=== PATIENT | female | born 1945 | race Caucasian/White ===

== ENCOUNTER 2023-09-30 06:46 | Observation (INO) ==
--- NOTE | 2023-09-26 16:04 | Anesthesiology Consultation ---
Date of Service September 26, 2023 Assessment & Plan (1) Encounter for pre-operative examination: Chart Review Chart Review: Acceptable Risk for Surgery and Patient NOT seen in Pre Admission Testing -Infectious Disease screening: Per PAT nursing assessment on 09/26/23. No known infectious disease contacts in past 10 days or current infectious disease symptoms. No recent travel outside the country. History Surgery Operation Date: 09/30/23 10:30 Proposed Procedures p Laparoscopic Cholecystectomy with Cholangiogram - Lexx Lin MD Height/Weight Height: 5 ft 6 in Weight: 71.214 kg Allergies Allergy/AdvReac Type Severity Reaction Status Date / Time No Known Allergies Allergy Verified 09/26/23 15:42 Medications Home Medications Medication Instructions Recorded Confirmed Last Taken mirabegron 50 mg tablet,extended 50 mg PO HS 09/15/23 09/26/23 09/19/23 release 24 hr (Myrbetriq) rivastigmine 4.6 mg/24 hour 4.6 mg transdermal QAM 09/15/23 09/26/23 09/20/23 transdermal patch (Exelon Patch) bisacodyl 5 mg tablet 10 mg PO HS PRN Constipation 09/20/23 09/26/23 Unknown cyanocobalamin (vitamin B-12) 500 500 mcg PO HS 09/20/23 09/26/23 09/19/23 mcg tablet (Vitamin B-12) omeprazole 20 mg capsule,delayed 20 mg PO QAM 09/20/23 09/26/23 09/20/23 release quetiapine 25 mg tablet (Seroquel) 25 mg PO HS 09/20/23 09/26/23 09/19/23 lorazepam 1 mg tablet 1 mg PO ONCE DOS 09/26/23 09/26/23 Unknown Past Medical History Medical History Crohn's disease no current issues Dementia late stages of dementia - lives with family (patient's brother, Akin) Heartburn vs abdominal pain r/t the gallbladder Urinary frequency overnight Past Family History Family History Other No family history of adverse response to anesthesia Past Surgical History Surgical History History of colonoscopy History of hysterectomy DARÍO with BSO S/P hip replacement bilateral? Social History Smoking Status: Former smoker Do You Dip or Chew Tobacco: No Hx Alcohol Use: No Hx Substance Use: No Lab Results Anesthesia Preop Results Results Anesthesia Widget: WBC 6.23 K/ul (4.8-10.8) 09/20/23 Hgb 12.4 g/dl (12.0-16.0) 09/20/23 Hct 37.9 % (37.0-47.0) 09/20/23 Plt 289 K/uL (130-400) 09/20/23 Na 134 mmol/L (136-145) L 09/20/23 K 3.4 mmol/L (3.5-5.1) L 09/20/23 Cl 98 mmol/L (98-107) 09/20/23 CO2 28 mmol/L (21-32) 09/20/23 BUN 7 mg/dl (6-23) 09/20/23 Creat 0.67 mg/dl (0.6-1.2) 09/20/23 Glucose Level 111 mg/dl (70-99(Fasting)) H 09/20/23 PT 10.9 Seconds (9.0-12.0) 09/15/23 PTT 26 Seconds (21-31) 09/15/23 INR 1.0 (0.9-1.1) 09/15/23 Urine Color Yellow 09/20/23 Urine Appearance Clear (Clear) 09/20/23 Urine pH 6.5 (4.5-7.5) 09/20/23 Urine Specific Alpha 1.039 (1.000-1.030) H 09/20/23 Urine Protein Negative (Negative) 09/20/23 Urine Glucose (UA) Negative (Negative) 09/20/23 Urine Ketones Negative (Negative) 09/20/23 Urine Blood Negative (Negative) 09/20/23 Urine Nitrite Negative (Negative) 09/20/23 Urine Bilirubin Negative (Negative) 09/20/23 Urine Urobilinogen Negative (Negative) 09/20/23 Urine Leukocyte Esterase Negative (Negative) 09/20/23 Testing Laboratory Results 09/15/23= URINE CULTURE: More than three types of organisms present, all high counts, mixed probable skin luis a. Electrocardiogram Date: 09/15/23 Findings: + NSR @ (87bpm) Left axis deviation Poor R wave progression, consider anterior MT vs lead placement vs LVH (Discussed with Dr. Mace- patient without significant cardiac risk factors, no significant physical limitations per nursing assessment- patient can proceed as scheduled) Chest X-Ray Date: 09/15/23 Findings: + NAD Other Testing Abdomen/Pelvis CT 09/20/23= Increased distal small bowel wall thickening with surrounding infiltration through the terminal ileum, suspicious for inflammatory bowel disease including Crohn's disease. Increased gallbladder distention. Small amount of pelvic free fluid. Redemonstrated probable left adrenal adenoma. Otherwise no change. (Discussed with Dr. Mace- abdomen/pelvis CT scan from 09/15/23 showed "lipid rich left adrenal adenoma;" patient's BP WNL at surgeon's appt 09/26/23 (137/63)- patient can proceed as scheduled)
--- OUTSIDE RECORDS SUMMARY | 2023-09-30 06:53 | External Medical Summary | Summary of Care ---
Author Name Unknown Organization [facility] Address [address] [address] Phone [phone] Care Team Providers Care Ux Consultant Name Role Phone Gaetano Lomax DO Primary Care Provider [phone] Reason for Visit * Reason Comments Follow Up Encounter Details Date Type Department Care Team (Late st Contact Info) Description 09/20/2023 4:00 PM EDT Office Visit Family Practice [address] [facility] [address] [place] [address] Gaetano Lomax [address] [place] [address] Abdominal pain, diffuse*; Pain aggravated by eating or drinking; Loss of weight; Alzheimer's type dementia with late onset with behavioral disturbance (HCC); Constipation, unspecified constipation type; Risk and functional assessment Allergies No known active allergiesdocumented as of this encounter (statuses as of 09/22/2023) Medications Medication Sig Dispensed Refills Start Date End Date Status QUEtiapine Fumarate 25 MG Oral Tablet (SEROquel)Indicati ons: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 30 Tablet 3 06/28/2023 Active Rivastigmine 4.6 MG/24HR Transdermal Patch 24 Hour (Exelon) Place 1 Patch over 24 hours topically on the skin in the morning. 30 Patch 12 07/03/2023 Active B-12 500 MCG Sublingual Tablet Sublingual Place 500 mcg under the tongue in the morning. 0 07/03/2023 Active Myrbetriq 50 MG Oral Tablet Extended Release 24 Hour (Mirabegron ER) Take 1 Tablet by mouth in the morning. 30 Tablet 11 08/14/2023 Active Cephalexin 500 MG Oral Capsule Take 1 Capsule by mouth in the morning and 1 Capsule at noon and 1 Capsule before bedtime. 0 Active Omeprazole 20 MG Oral Capsule Delayed Release (PriLOSEC)Indicati ons:RUQ abdominal pain Take 1 Capsule by mouth in the morning. 1 hour before the first meal of the day. 30 Capsule 5 09/18/2023 Active Bisacodyl 5 MG Oral Tablet Delayed Release (Dulcolax)Indicati ons:Slow transit constipation Take 2 Tablets by mouth daily as needed for Constipation for up to 5 days. Do not use for more than one week. Do not cut, crush or chew 0 09/18/2023 09/23/2023 Active documented as of this encounter (statuses as of 09/22/2023) Active Problems Problem Noted Date Diagnosed Date Alzheimer's type dementia wi th late onset with behavioral disturbance 06/28/2023 documented as of this encounter (statuses as of 09/22/2023) Immunizations Name Administration Dates Next Due Covid-19 Ad26, Single Dose (Kalen/J&J) 021 Pneumococcal Conjugate Vacc, 13 Valent (Prevnar) 05/28/2018 Pneumococcal Polysaccharide PPV23 (Pneumovax) TDAP (age 11 and older)(Adacel) 07/20/2013 documented as of this encounter Social History Tobacco Use Types Packs/Day Years Used Date Smoking Tobacco: Former Cigarettes Passive Smoke Exposure: Past Smokeless Tobacco: Never Tobacco Cessation:Counseling Given: Yes Alcohol Use Standard Drinks/Week Comments Not Currently 0 (1 standard drink = 0.6 oz pur e alcohol) heavy in thepast PHQ-2 Answer Date Recorded PHQ Adult Total Score 6 06/28/2023 Hunger Vital Sign Answer Date Recorded Within the past 12 months, y ou worried that your food would run out before you got the money to buy more. Never true 06/28/19 24 Within the past 12 months, t he food you bought just didn't last and you didn't have money to get more. Never true 06/28/2023 Education Answer Date Recorded What is the highest level of school you have completed or the highest degree you have received? 12th grade 07/03/2023 Sex and Gender Information Value Date Recorded Sex Assigned at Female 06/28/2023 9:22 AM EST Gender Identity Female 06/28/2023 9:22 AM EST Sexual Orientation Straight 06/28/2023 9: 22 AM EST Job Start Date Occupation Industry Not on file Not on file Not on file documented as of this encounter Last Filed Vital Signs Vital Sign Reading Time Taken Comments Blood Pressure 126/80 09/20/2023 3:43 PM EDT Pulse 88 09/20/2023 3:43 PM EDT Temperature 36.3 C (97.4 F) 09/20/2023 3:43 PM ED T Respiratory Rate 14 09/20/2023 3:43 PM EDT Oxygen Saturation 97% 09/20/2023 3:43 PM EDT Inhaled Oxygen Concentration - - Weight 71.4 kg (157 lb 6.4 oz) 09/20/2023 3:43 P M EDT Height 167.6 cm (5' 6") 09/20/2023 3:43 PM EDT Body Mass Index 25.41 09/20/2023 3:43 PM EDT documented in this encounter Patient Instructions * Patient Instructions* Gianna Mcgraw LPN - 09/20/2023 3:41 PM EDT Patient Instructions - Fall Prevention (This education is for all patients over 65 regardless of symptoms) Remember to take your current medications as prescribed. In order to prevent falls, you are encouraged to: Exercise Utilize assistive/adaptive devices Avoid multifocal lenses when walking Avoid hazards in home Maintain a regular toileting schedule Any questions please contact our office. Preventing Falls in the Home (This education is for all patients over 65 regardless of symptoms) As you get older, falls are more likely. Thats because your reaction time slows. Your muscles and joints may also get stiffer, making them less flexible. Illness, medications, and vision changes can also affect your balance. A fall could leave you unable to live on your own. To make your home safer, follow these tips: Floors Put nonskid pads under area rugs Remove throw rugs Replace worn floor coverings Tack carpets firmly to each step on carpeted stairs. Put nonskid strips on the edges of uncarpeted stairs Keep floors and stairs free of clutter and cords Arrange furniture so there are clear pathways Clean up any spills right away Bathrooms Install grab bars in the tub or shower Apply nonskid strips or put a nonskid rubber mat in the tub or shower Sit on a bath chair to bathe Use bathmats with nonskid backing Lighting Keep a flashlight in each room Put a nightlight along the pathway between the bedroom and the bathroom [facility] Patient Education Copyright 2008 - 2010 [employer] except where otherwise noted Preventing Falls: Exercises to Improve Balance, Flexibility, Strength, and Staying Power (This education is for all patients over 65 regardless of symptoms) Certain types of exercises may help make you less likely to fall. Try the ones below. Or do other exercises that your healthcare provider suggests. Depending on your health, you may need to start slowly. Dont let that stop you. Even small amounts of exercise can help you. Be sure to talk to yourhealthcare provider before starting any exercise program. Improve Balance Many types of exercise can help improve balance. Jose Cruz chi and yoga are good examples. Heres another one to try. You can do it anytime and almost anywhere. Stand next to a counter or solid support. Push yourself up onto your tiptoes. Hold for 5 seconds. If you start to lose your balance, hold on to the counter. Rest and repeat 5 times. Work up to holding for 20 to 30 seconds, if you can. Increase Flexibility Being more flexible makes it easier for you to move around safely. Try exercises like the seated hamstring stretch. Sit in a chair and put one foot on a stool. Straighten your leg and reach with both hands down either side of your leg. Reach as far down your leg as you can. Hold for about 20 seconds. Go back to the starting position. Then repeat 5 times. Switch legs. Build Strength Resistance exercises help build strength. You can do them without equipment. Or you can use weights, elastic bands, or special machines. One such exercise is called the biceps curl. You can hold a 1 pound weight or even a can of soup. Do this exercise at least 3 times a week. Strive for everyday. Sit up straight in a chair. Keep your elbow close to your body and your wrist straight. Bend your arm, moving your hand up to your shoulder. Then slowly lower your arm. Repeat 5 times. Switch to the other arm. Build Your Staying Power Aerobic exercises make your heart and lungs stronger so you can keep moving longer. Walking and swimming are two of the best types of exercises you can do. Using a stationary bike is great, too. Find an aerobic exercise that you enjoy. Start slowly and build up. Even 5 minutes is helpful. Aimfor a goal of 30 minutes, at least 3 times a week. You dont have to do 30 minutes in one session. Break it up and walk a little throughout the day. More Helpful Tips Start easy. Slowly work up to doing more. Talk with your healthcare provider about the best exercises for you. Call senior centers or health clubs about exercise programs. If needed, have a family member watch you walk every so often to check your stability. Exercise with a friend. Choose an activity you both enjoy. Try exercises that you can do anytime, anywhere. Here are two examples. Have someone with you when you first try these: Practice walking by placing one foot right in front of the other. Stand up and sit down 10 times. Repeat this throughout the day. [employer] Patient Education Copyright 2008 - 2010 [employer] except where otherwise noted. Preventing Falls: Moving Safely Using a Cane or Walker (This education is for all patients over 65 regardless of symptoms) Keep the cane away from your feet so you dont trip. A walking aid, such as a cane or walker, can help you stay more independent and avoid falls. Remember to keep your walking aid within easy reach when youre in a chair or in bed. And learn how to use it safely so you dont injure yourself. Using a Cane If you have a stronger side, hold the cane on that side. Get your balance. Move the cane and your weaker leg forward. Support your weight on both the cane and your weaker side. Step with your stronger leg. Start again from step 1. If youre using a folding walker, be sure you know how to lock it open. Check that its locked open before each use. Using a Walker Roll the walker (or lift it, if youre using one without wheels) forward about 12 inches. Step forward with your weaker leg first. Use the walker to help keep your balance. Bring your other foot forward to the center of the walker. Start again from step 1. Helpful Tips Check with your healthcare provider about the right walking aid to use. Ask about a walker with a seat attached. Check the tips of your cane or walker to make sure they have nonskid covers. Move slowly from room to room. Dont greenfield. Sit down to get dressed. Use a pedro pack or backpack to keep your hands free. Get help for jobs that mean climbing, even on a stepstool. [employer] Patient Education Copyright 2008 - 2010 [employer] except where otherwise noted. Urinary Incontinence Plan of Care Documentation: (This education is for all patients over 65 regardless of symptoms) Current medications reconciled. Patient encouraged to: Practice kegal exercises Provide education materials Use the restroom every 2 hours throughout the day Limit caffeine, alcohol, spicy foods and acidic foods Keep a bladder diary Limit fluid intake 3-4 hours before bed Lose weight Prevent constipation Take fluid pills at a time when you can get to the bathroom quickly Control sugar better if diabetic Limit fluid intake to 60 oz. per day Wear support stockings (TEDs)if you have edema Gianna Mcgraw LPN 09/20/2023 Kegel Exercises Kegel exercises dont require special clothing or equipment. Theyre easy to learn and simple to do. And if you do them right, no one can tell youre doing them, so they can be done almost anywhere. Your doctor, nurse, or physical therapist can answer any questions you have and help you get started. A Weak Pelvic Floor The pelvic floor muscles may weaken due to aging, and vaginal childbirth, injury, surgery, chronic cough, or lack of exercise. If the pelvic floor is weak, your bladder and other pelvic organs may sag out of place. The urethra may also open too easily and allow urine to leak out. Kegel exercises can help you strengthen your pelvic floor muscles so they can better support the pelvic organs and control urine flow. How Kegel Exercises Are Done Try each of the Kegel exercises described below. When youre doing them, try not to move your leg, buttock, or stomach muscles. While youre urinating, try to stop the flow of urine. Start and stop it as often as you can. Contract as if you were stopping your urine stream, but do it when youre not urinating. Tighten your rectum as if trying not to pass gas. Contract your anus, but dont move your buttocks. Helpful Hints Do your Kegels as often as you can. The more you do them, the faster youll feel the results. Pick an activity you do often as a reminder. For instance, do your Kegels every time you sit down. Tighten your pelvic floor before you sneeze, get up from a chair, cough, laugh, or lift. This protects your pelvic floor from injury and can help prevent urine leakage. Try to hold each Kegel for a slow count to five. You probably wont be able to hold them for thatlong at first, but keep practicing. It will get easier as your pelvic floor gets stronger. Eventually, special weights that you place in your vagina may be recommended to help make your Kegels even more effective. [employer] Patient Education Copyright 2008 - 2010 [employer] except where otherwise noted. Here are some helpful tips for your urinary incontinence: (This education is for all patients over 65 regardless of symptoms) Practice Kegel exercises Use the restroom every 2 hours throughout the day Limit caffeine, alcohol, spicy foods, and acidic foods Keep a bladder diary Limit fluid intake 3-4 hours before bed Lose weight Prevent constipation Take fluid pills at a time when can get to the bathroom quickly Control sugar better if diabetic Limit fluid intake to 60 oz. per day Any questions, please feel free to contact our office. documented in this encounter Progress Notes * Gaetano Lomax, - 09/20/2023 4:15 PM EDT SUBJECTIVE: Josiane Contreras is a 78 year old female. Chief Complaint Patient presents with Follow Up HPI: Patient is a 78 year old female with a history of Dementia, Urinary Incontinence, and Irritable Bowel Syndrome that is seen for follow up. Memory loss continues to worsen per her brother. Patient wasbrought to the visit by her brother who assists with history. The patient was seen in the ED at [facility] on 09/15/2023 due to abdominal pain. She has loss of appetite and constipation for 1 week as well. Patient has enlarged gallbladder with no stones, and thickening of the ileum. Patient was treated with Keflex for UTI. Abdominal pain has not improved and worsens with eating food. She is tolerating liquids. She has not been able to tolerate solids for 10 days. No BM for the last week. US RUQ was done on 09/17. Patient has mild dilated CBD and sludge in gallbladder. N ofever or chills are present. Attempted to have CTA abdomen done today to assess for mesenteric ischemia. Patient did nottolerate attempts at IV placement at radiaology. Patient Active Problem List Diagnosis Code Alzheimer's type dementia with late onset with behavioral disturbance (HCC) G30.1, F02.818 Current Outpatient Medications Medication Sig Dispense Refill QUEtiapine Fumarate 25 MG Oral Tablet (SEROquel) Take 1 Tablet by mouth at bedtime. 30 Tablet 3 Rivastigmine 4.6 MG/24HR Transdermal Patch 24 Hour (Exelon) Place 1 Patch over 24 hours topically on the skin in the morning. 30 Patch 12 B-12 500 MCG Sublingual Tablet Sublingual Place 500 mcg under the tongue in the morning. Myrbetriq 50 MG Oral Tablet Extended Release 24 Hour (Mirabegron ER) Take 1 Tablet by mouth in the morning. 30 Tablet 11 Cephalexin 500 MG Oral Capsule Take 1 Capsule by mouth in the morning and 1 Capsule at noon and 1 Capsule before bedtime. Omeprazole 20 MG Oral Capsule Delayed Release (PriLOSEC) Take 1 Capsule by mouth in the morning. 1 hour before the first meal of the day. 30 Capsule 5 Bisacodyl 5 MG Oral Tablet Delayed Release (Dulcolax) Take 2 Tablets by mouth daily as needed for Constipation for up to 5 days. Do not use for more than one week. Do not cut, crush or chew No current facility-administered medications for this visit. The patient's medication list was reviewed and updated as needed. Past Medical History: Diagnosis Date Alzheimer's type dementia with late onset with behavioral disturbance (HCC) Past Surgical History: Procedure Laterality Date MO TOTAL ABDOMINAL HYSTERECT W/WO RMVL TUBE OVARY Review of patient's allergies indicates: No Known Allergies Review of Systems Constitutional: Positive for appetite change and fatigue. Negative for chills and fever. Respiratory: Negative for cough, shortness of breath and wheezing. Cardiovascular: Negative for chest pain, palpitations and leg swelling. Gastrointestinal: Positive for abdominal pain, constipation and nausea. Negative for blood in stool, diarrhea, rectal pain and vomiting. Genitourinary: Negative for dysuria and hematuria. Musculoskeletal: Negative for back pain and gait problem. Neurological: Negative for dizziness, syncope and headaches. Psychiatric/Behavioral: Positive for confusion and decreased concentration. Negative for sleep disturbance. OBJECTIVE: BP 126/80 | Pulse 88 | Temp 36.3 C (97.4 F) | Resp 14 | Ht 1.676 m (5' 6") | Wt 71.4 kg (157 lb6.4 oz) | SpO2 97% | BMI 25.41 kg/m | BSA 1.82 m Physical Exam Vitals and nursing note reviewed. Constitutional: General: She is not in acute distress. Appearance: She is not toxic-appearing. HENT: Head: Normocephalic and atraumatic. Cardiovascular: Rate and Rhythm: Normal rate and regular rhythm. Heart sounds: Normal heart sounds. No murmur heard. No gallop. Pulmonary: Effort: Pulmonary effort is normal. Breath sounds: Normal breath sounds. No wheezing, rhonchi or rales. Abdominal: General: There is no distension. Palpations: Abdomen is soft. Tenderness: There is generalized abdominal tenderness. There is guarding. There is no rebound. Hernia: No hernia is present. Comments: Decreased bowel sounds Musculoskeletal: Right lower leg: No edema. Left lower leg: No edema. Neurological: Mental Status: She is alert. Psychiatric: Cognition and Memory: Cognition is impaired. Memory is impaired. PLAN AND ASSESSMENT: Abdominal pain, diffuse (Primary) Possible Mesenteric Ischemia No improvement in symptoms Minimal oral food intake for the last 10 days Continue PPI Sent for reevaluation in ED Report called Inflammation in small bowel is present on CT Gallbladder distention and sludge is presnet Pain aggravated by eating or drinking Loss of weight Alzheimer's type dementia with late onset with behavioral disturbance (HCC) Continue Rivastigmine and Quetiapine Constipation, unspecified constipation type Risk and functional assessment Follow Up: Return if symptoms worsen or fail to improve. Gaetano Lomax DO 4:27 PM 09/20/2023 documented in this encounter Nursing Notes * Gianna Mcgraw LPN - 09/20/2023 3:43 PM EDT Pain continues, not able to get a stick for contrast. documented in this encounter Plan of Treatment Upcoming Encounters Date Type Department Care Team (Late st Contact Info) Description 09/27/2023 11:20 AM EDT Office Visit Family Practice [address] [place] [address] [place] [address] Gaetano Lomax, [address] [place] [address] 10/25/2023 8:00 AM EDT Office Visit Gastroenterology, [facility] [address] [place] [address] Roxana Bill CRNP [address] [place] [address] 11/07/2023 8:40 AM EDT Office Visit Neurology [facility] [address] [place] [address] Sulema Dorsey MD [address] [place] [address] 05/22/2024 9:00 AM EST Office Visit Neurology [facility] [address] [place] [address] Mirela Lewis, DO [address] [place] [address] Health Maintenance Due Date Last Done Comments Hepatitis C Screening 1963 Zoster Vaccines (1 of 2) 1997 COVID-19 Vaccine (2 - 2022-2 4 season) 2023 06/07/2021 Influenza Vaccine (FLU shot) (#1) 2023 DTaP,Tdap,and Td Vaccines (2 - Td or Tdap) 07/20/2023 07/20/2013 Depression Screening 06/28/2024 06/28/2023 DXA Scan 07/15/2027 07/15/2017 Pneumococcal Vaccine: 65+ Years Completed 05/28/2018, 07/20/2013 GARDASIL-HPV IMMUNIZATION SERIES Aged Out No longer eligible b ased on patient's age to complete this topic Hepatitis B Aged Out No longer eligi ble based on patient's age to complete this topic MENINGOCOCCAL (MENACTRA/MENVEO) Aged Out No longer eligible b ased on patient's age to complete this topic documented as of this encounter Medical Devices Not on filedocumented as of this encounter Visit Diagnoses Diagnosis Abdominal pain, diffuse- Primary Abdominal pain, unspecified site Pain aggravated by eating or drinking Loss of weight Alzheimer's type dementia with late onset with behavioral disturbance (HCC) Alzheimer's disease Constipation, unspecified constipation type Risk and functional assessment Screening for unspecified condition documented in this encounter Advance Directives Documents on File Type Date Recorded Patient Surgical Supply Assistant Expl anation Power of Installer Apprentice 06/17/2023 EDITH Navarro PARENTAL ACCESS REQUEST Power of Installer Apprentice 05/09/2023 POWER OF A TTORNEY Care Teams Ux Consultant Relationship Specialty Start Date End Date Gaetano Lomax DO [address] [place] [address] PCP - General Internal Medicine 06/28/23 documented as of this encounter
--- OUTSIDE RECORDS SUMMARY | 2023-09-30 06:53 | External Medical Summary | Summary of Care ---
Author Name Unknown Organization [facility] Address [address] [facility] [address] Phone [phone] Care Team Providers Care Tablet Coater Name Role Phone Gaetano Lomax DO Primary Care Provider [phone] Reason for Visit * Reason Onset Date Comments Advice 09/26/2023 Encounter Details Date Type Department Care Team (Late st Contact Info) Description 09/26/2023 Telephone Family Practice [address] [facility] [address] [place] [phone] Gaetano Lomax DO [address] [place] [address] Advice (/) Allergies No known active allergiesdocumented as of this encounter (statuses as of 09/26/2023) Medications Medication Sig Dispensed Refills Start Date End Date Status QUEtiapine Fumarate 25 MG Oral Tablet (SEROquel)Indication s: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 30 Tablet 3 06/28/2023 Active B-12 500 MCG Sublingual Tablet Sublingual [...] Omeprazole 20 MG Oral Capsule Delayed Release (PriLOSEC)Indication s:RUQ abdominal pain Take 1 Capsule by mouth in the morning. 1 hour before the first meal of the day. 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) Take one hour prior to leaving home for surgery with sip of water 1 Tablet 0 09/26/2023 10/01/2023 Active documented as of this encounter (statuses as of 09/26/2023) Active Problems Problem Noted Date Diagnosed Date Alzheimer's type dementia wi th late onset with behavioral disturbance 06/28/2023 documented as of this encounter (statuses as of 09/26/2023) Immunizations Name Administration Dates Next Due Covid-19 Ad26, Single Dose (Kalen/J&J) 021 Pneumococcal Conjugate Vacc, 13 Valent (Prevnar) 05/28/2018 Pneumococcal Polysaccharide PPV23 (Pneumovax) TDAP (age 11 and older)(Adacel) 07/20/2013 documented as of this encounter Social History Tobacco Use Types Packs/Day Years Used Date Smoking Tobacco: Former Cigarettes Passive Smoke Exposure: Past Smokeless Tobacco: Never Alcohol Use Standard Drinks/Week Comments Not Currently [...] on file documented as of this encounter Miscellaneous Notes * Telephone Encounter - Gianna Mcgraw LPN - 09/26/2023 3:46 PM EDT Spoke to Alma, made aware. Patient is aware and will comply. Advised to take with a sip of water only Thank you * Telephone Encounter - Gaetano Lomax DO - 09/26/2023 3:34 PM EDT I have reviewed the patients controlled substance dispensing history in the Prescription Drug Monitoring Program in compliance with the [facility] regulations before prescribing a controlled substance. Last Tox Screen Results: No results found for this or any previous visit. * Telephone Encounter - Gianna Mcgraw LPN - 09/26/2023 3:23 PM EDT Called Alma, states she will look up and call back * Telephone Encounter - Gaetano Lomax DO - 09/26/2023 3:16 PM EDT Give Lorazepam 1 mg 1 hour prior to leaving home for surgery * Telephone Encounter - Gianna Mcgraw LPN - 09/26/2023 3:05 PM EDT [place] stopped by office, states that general surgeon wants to take her gall bladder. Niyou is concerned that they may loose the bed at [facility]. Requesting ativan to take before the surgery to help patient be less agitated. Thank you documented in this encounter Plan of Treatment Upcoming Encounters Date Type Department Care Team (Late st Contact Info) Description 09/30/2023 7:30 AM EDT Office Visit [facility], Operating Room, [facility] [address] [place] [facility] [place] [address] Lexx Lin MD [address] [place] [address] 10/02/2023 9:30 AM EDT Scheduled Telephone General Surgery, Health system [address] [facility] [place] [address] Sammy Nurse Gen Surg [facility] [address] [facility] [place] [address] 10/02/2023 11:00 AM EDT Office [facility]enterology, [facility] [place] [address] Yin Dent CRNP [facility] [place] [address] 10/17/2023 2:15 PM EDT Office Visit General Surgery, Health system [address] [place] [address] Lexx Lin MD [address] [facility] [place] [address] 11/07/2023 8:40 AM EDT Office Visit Neurology [facility] [address] [facility] [place], [place] [address] Sulema Dorsey MD [address] [facility] [place] [address] Health Maintenance Due Date Last Done Comments Hepatitis C Screening 1963 Zoster Vaccines (1 of 2) 1997 COVID-19 Vaccine (2 - 2022-2 4 season) 2023 06/07/2021 DTaP,Tdap,and Td Vaccines (2 - Td or Tdap) 07/20/2023 07/20/2013 Influenza Vaccine (FLU shot) (Season Ended) 2024 Depression Screening 06/28/2024 06/28/2023 DXA Scan 07/15/2027 [...] as of this encounter Visit Diagnoses Diagnosis Alzheimer'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
--- OUTSIDE RECORDS SUMMARY | 2023-09-30 06:53 | External Medical Summary | Summary of Care ---
Author Name Unknown Organization [facility] Address [address] [facility] [place] [address] Phone [phone] Care Team Providers Care Investigative Writer Name Role Phone Gaetano Lomax Victoria NOGUERA Primary Care Provider [phone] Reason for Visit * Reason Onset Date Comments Advice 09/20/2023 CT not complete Encounter Details Date Type Department Care Team (Late st Contact Info) Description 09/20/2023 Telephone Radiology [address] [place] [address] Heather Chavarria, RT (R) Advice (CT not complete) Allergies No known active allergiesdocumented as of this encounter (statuses as of 09/20/2023) Medications Medication Sig Dispensed Refills Start Date [...] as of this encounter (statuses as of 09/20/2023) Active Problems Problem Noted Date Diagnosed Date Alzheimer's type dementia wi th late onset with behavioral disturbance 06/28/2023 documented as of this encounter (statuses as of 09/20/2023) Immunizations Name Administration Dates Next Due Covid-19 [...] encounter Miscellaneous Notes * Telephone Encounter - Heather Chavarria RT (R) - 09/20/2023 4:01 PM EDT Patient was unable to hold still to insert IV. Therefore she did not get her CT done. Notified provider & was told to send patient back over to [facility]. documented in this encounter Plan of Treatment Upcoming Encounters Date Type Department Care Team (Late st Contact Info) Description 09/27/2023 11:20 AM EDT Office Visit Family Practice [address] [facility] [place] [address] [facility] [place] [address] Gaetano Lomax DO 293 [place] [address] 10/25/2023 8:00 AM EDT Office Visit Gastroenterology, [facility] [address] [facility] [place] [address] Roxana Bill CRNP [facility] [address] 11/07/2023 8:40 AM EDT Office Visit Neurology [facility] [address] [facility] [place] [address] Sulema Dorsey MD [address] [facility] [place] [address] 05/22/2024 9:00 AM EST Office Visit Neurology [facility] [address] [place] [address] Mirela Lewis, DO [address] [facility] [place] [address] Health Maintenance Due Date Last Done Comments Hepatitis C Screening 1963 COVID-19 Vaccine (2 - 2022-2 4 season) 2023 06/07/2021 Influenza Vaccine (FLU shot) (#1) 2023 DTaP,Tdap,and Td Vaccines (2 - Td or Tdap) 09/21/2023 07/20/2013 Postponed from 07/20 (Patient Declined After Education) Zoster Vaccines (1 of 2) 09/21/2023 Pos tponed from 1997 (Patient Declined After Education) Depression Screening 06/28/2024 06/28/2023 DXA Scan 07/15/2027 [...] Not on filedocumented as of this encounter Advance Directives Documents on File Type Date Recorded Patient Glue Bone Drier Expl anation Power of Car Salesperson 06/17/2023 EDITH Navarro PARENTAL ACCESS REQUEST Power of Car Salesperson 05/09/2023 POWER OF A TTORNEY Care Teams Investigative Writer Relationship Specialty Start Date End Date Gaetano Lomax DO [address] [place] [address] PCP - General Internal Medicine 06/28/23 documented as of this encounter
--- OUTSIDE RECORDS SUMMARY | 2023-09-30 06:53 | External Medical Summary | Summary of Care ---
Author Name Unknown Organization [facility] Address [address] [facility] [address] Phone [phone] Care Team Providers Care Suture Gauger Name Role Phone Gaetano Lomax DO Primary Care Provider [phone] Reason for Visit * Reason Comments NEW PATIENT Gallbladder issues, sludge and dilated duct. * Evaluate & Treat - Unlimited Visits (Within 30 days (routine)) - Authorized Specialty Diagnoses / Procedures Referred By Mireya t Referred To Contact General Surgery Diagnoses Abnormal gall bladder diagnostic imaging Gaetano Lomax DO [address] [place] [address] Referral ID Status Reason Start Date Expiration Date Visits Requested Visits Authorized [id number] Authorized Specialty Services Required 09/23/2023 [id number] Encounter Details Date Type Department Care Team (Late st Contact Info) Description 09/26/2023 3:00 PM EDT Office Visit General Surgery, [facility] [address] [facility] [place] [address] Lexx Lin MD 132 [facility] [place] [address] Sludge in gallbladder* Allergies No known active allergiesdocumented as of this encounter (statuses as of 09/26/2023) Medications Medication Sig Dispensed Refills Start Date End Date Status QUEtiapine Fumarate 25 MG Oral Tablet (SEROquel)Indications :Alzheimer's type dementia with late onset with behavioral [...] Omeprazole 20 MG Oral Capsule Delayed Release (PriLOSEC)Indications :RUQ abdominal pain Take 1 Capsule by mouth in the morning. 1 hour before the first meal of the day. 30 Capsule 5 09/18/2023 Active documented as of this encounter (statuses [...] Past Smokeless Tobacco: Never Tobacco Cessation:Counseling Given: Not Answered Alcohol Use Standard Drinks/Week Comments Not Currently [...] Sign Reading Time Taken Comments Blood Pressure 137/63 09/26/2023 1:41 PM EDT Pulse 81 09/26/2023 1:41 PM EDT Temperature 37.2 C (99 F) 09/26/2023 1:41 PM EDT Respiratory Rate - - Oxygen Saturation - - Inhaled Oxygen Concentration - - Weight 71.4 kg (157 lb 6.4 oz) 09/26/2023 1:41 P M EDT Height - - Body Mass Index 25.41 09/20/2023 3:43 PM EDT documented in this encounter Progress Notes * Lexx Lin MD - 09/26/2023 1:41 PM EDT [facility] [address] [place] [phone] [facility] Chief Complaint: Chief Complaint Patient presents with NEW PATIENT Gallbladder issues, sludge and dilated duct. History of Present Illness: Josiane Contreras is a 78 year old female who has been having right upper quadrant pain. Pain has been present for weeks. The pain does radiate to the patient's back. The patient does have nausea associated with it. The patient does not have any jaundice associated with it. The pain is made worse by fatty or fried foods. 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 30 Tablet 3 B-12 500 MCG Sublingual Tablet Sublingual Place [...] meal of the day. 30 Capsule 5 No current facility-administered medications for this visit. 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 Tobacco Use Smoking status: Former Types: Cigarettes Passive exposure: Past Smokeless tobacco: Never Vaping Use Vaping Use: Never used Substance and Sexual Activity Alcohol use: Not Currently Comment: heavy in thepast Drug use: Never Sexual activity: Not Currently Partners: Male Other Topics Concern Not on file Social History Narrative Not on file Social Determinants of Health Financial Resource Strain: Not on file Food Insecurity: No Food Insecurity (06/28/2023) Hunger Vital Sign Worried About Running Out of Food in the Last Year: Never true Ran Out of Food in the Last Year: Never true Transportation Needs: Not on file Physical Activity: Not on file Stress: Not on file Social Connections: Not on file Intimate Partner Violence: Not on file Housing Stability: Not on file ROS: GEN: no weight loss, fever, fatigue HEENT: no changes in vision or hearing, no sinus problems, no sore throat, no hoarseness RESPIRATORY: no cough, wheezing, SOB or change in breathing CARDIOVASCULAR: no exertional chest pain, dyspnea, palpitations GI: see HPI , otherwise negative : no dysuria, hematuria, frequency MUSCULOSKELETAL: no change in joint pains, no new arthritis PSYCHIATRIC: no significant anxiety or depression, unchanged sleep pattern HEME: no bleeding tendency, no clotting tendency NEURO: no significant headache, no seizures , no tremors SKIN: no new rashes, no itching Physical Exam: Blood pressure 137/63, pulse 81, temperature 37.2 C (99 F), weight 71.4 kg (157 lb 6.4 oz). Constitutional: alert, healthy, well nourished Head: normocephalic, atraumatic Eyes: conjunctiva non-injected, sclera white Ears: pinna normal shape and color Nose: no purulent discharge Mouth: lips, mucosa, and tongue normal Neck: supple, no adenopathy Lungs: clear to auscultation, breath sounds are equal and symmetric Heart: regular rate & rhythm and no murmur, gallops or rubs Abdomen: soft, non-tender, normal bowel sounds, no hernias Back: normal curvature, normal ROM Extremities: no joint deformities, effusion, or inflammation, no edema, no skin discoloration Neuro: alert, gait normal, motor normal Skin: no obvious rashes or significant lesions Imaging: EXAM US ABDOMEN LIMITED-09/18/2023 2:38 pm HISTORY RUQ pain TECHNIQUE Sonogram of the right upper quadrant. FINDINGS LIVER: Normal echogenicity. No focal lesion. BILE DUCTS: Questionable intrahepatic duct dilatation. The common bile duct measures 8 mm which is dilated. GALLBLADDER: Gallbladder is distended. No cholelithiasis, although sludge is noted within the gallbladder. No wall thickening or pericholecystic fluid. PANCREAS: Visualized portions are unremarkable. RIGHT KIDNEY: 10.4 cm in length. No hydronephrosis, shadowing calculi, or focal lesion. OTHER: No ascites. IMPRESSION IMPRESSION Mildly dilated common bile duct measuring 0.8 cm with questionable intrahepatic duct dilatation. Sludge within distended gallbladder. Recommend correlation with CT scan or MRI for further evaluation Lab: LFTs normal Impression: Josiane Contreras is a 78 year old female with gallbladder sludge and ductal dilation. Ifeel that the patient is a good candidate for laparascopic cholecystectomy. Treatment Plan: Laparascopic cholecystectomy with intraoperative cholangiogram. Risks discussed with the patient, including but not limited to: bleeding, infection, conversion to open, injury to the common bile duct, bile leak, retained common bile duct stone requiring ERCP, postoperative diarrhea and intolerance to foods postoperatively. Expected same day nature of surgery and recovery period reviewed. All of the patient's questions have been answered. Will check CBC, CMP, EKG preoperatively. Will schedule at [facility] on 09/30/2023. Attending: Lexx Lin MD 09/26/2023 1:41 PM documented in this encounter Nursing Notes * Concepción Ham LPN - 09/26/2023 2:37 PM EDT Patient scheduled at [facility] for Lap Jen with Dr Lexx Lin. Date of Test: 09/30/2023 Medications reviewed. EKG not obtained, already done Labs: not obtained, current Permit signed. Patient verbalizes understanding of pre- and post op instructions. Written instructions given for review at later date. Concepción Ham LPN 09/26/2023 * Concepción Ham LPN - 09/26/2023 1:39 PM EDT Chief Complaint Patient presents with NEW PATIENT Gallbladder issues, sludge and dilated duct. Patient went in to er and they said she had a UTI and it did not make the pain go away and then shehad to go back and they said she had gallbladder issues. documented in this encounter Plan of Treatment Upcoming Encounters Date Type Department Care Team (Late st Contact Info) Description 09/30/2023 7:30 AM EDT Office Visit [facility], Operating Room, [facility] [address] [facility], [place] [address] Lexx Lin MD [address] [place] [address] 10/02/2023 9:30 AM EDT Scheduled Telephone General Surgery, [facility] [address] [place] [address] Nurse Sammy Gen Surg [facility] [address] [place] [address] 10/02/2023 11:00 AM EDT Office Visit Gastroenterology, [facility] [address] [place] [address] Yin Dent CRNP [address] [place] [address] 10/17/2023 2:15 PM EDT Office Visit General Surgery, [facility] [address] [place] [address] Lexx Lin MD 132 [facility] [place] [address] 11/07/2023 8:40 AM EDT Office Visit Neurology [facility] [address] [place] [address] Sulema Dorsey MD [address] [place] [address] Scheduled Referrals Name Type Priority Associated Diagnoses Orde r Schedule SURGERY REFERRAL OP Referral Within 30 da ys (routine) Abnormal gall bladder diagnostic imaging Ordered: 09/23/2023 Health Maintenance Due Date Last Done Comments [...] as of this encounter Visit Diagnoses Diagnosis Sludge in gallbladder- Primary Other specified disorder of gallbladder documented in this encounter Advance Directives Documents on File Type Date Recorded Patient Caretaker Grounds Expl anation Power of Dock Superintendent 06/17/2023 EDITH Navarro PARENTAL ACCESS REQUEST Power of Dock Superintendent 05/09/2023 POWER OF A TTORNEY Care Teams Suture Gauger Relationship Specialty Start Date End Date Gaetano Lomax DO [address] [facility] [place] [address] PCP - General Internal Medicine 06/28/23 documented as of this encounter
--- OUTSIDE RECORDS SUMMARY | 2023-09-30 06:53 | External Medical Summary | Summary of Care ---
Author Name Unknown Organization [facility] Address [address] [facility] [address] Phone [phone] Care Team Providers Care Time Study Analyst Name Role Phone Gaetano Lomax DO Primary Care Provider [phone] Reason for Referral * Evaluate & Treat - Unlimited Visits (Within 30 days (routine)) - Authorized Specialty Diagnoses / Procedures Referred By Mireya pereira Referred To Contact General Surgery Diagnoses Abnormal gall bladder diagnostic imaging Gaetano Lomax DO [address] [place] [address] Referral ID Status Reason Start Date Expiration Date Visits Requested Visits Authorized [id number] Authorized Specialty Services Required 09/23/2023 999 999 Question Answer Referral Priority Within 30 days (routine) Where should this appointment be scheduled? [facility] What condition is the patient being seen for? General Surgery Conditions What condition is the patient being seen for? 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 30 Tablet 3 4 Active B-12 500 MCG Sublingual Tablet Sublingual Place 500 mcg under the tongue in the morning. 0 4 Active Myrbetriq 50 MG Oral Tablet Extended Release 24 Hour (Mirabegron ER) Take 1 Tablet by mouth in the morning. 30 Tablet 11 4 Active Cephalexin 500 MG Oral Capsule Take 1 Capsule by mouth in the morning and 1 Capsule at noon and 1 Capsule before bedtime. 0 Active Omeprazole 20 MG Oral Capsule Delayed Release (PriLOSEC)Indicat ions:RUQ abdominal pain Take 1 Capsule by mouth in the morning. 1 hour before the first meal of the day. 30 Capsule 5 4 Active Rivastigmine 4.6 MG/24HR Transdermal Patch 24 Hour (Exelon) Place 1 Patch over 24 hours topically on the skin in the morning. 30 Patch 12 4 09/23/19 24 Discontinued Bisacodyl 5 MG Oral Tablet Delayed Release (Dulcolax)Indicat ions:Slow transit constipation Take 2 Tablets by mouth daily as needed for Constipation for up to 5 days. Do not use for more than one week. Do not cut, crush or chew 0 4 09/23/19 24 documented as of this encounter (statuses as [...] encounter Miscellaneous Notes * Telephone Encounter - Harper Rosas OSA - 09/26/2023 11:36 AM EDT Spoke with Alma, appointments scheduled Will call in and reschedule appointment with Dr Lomax once she is settled * Telephone Encounter - Harper Bailey OSA - 09/26/2023 9:42 AM EDT LMOM #3 Alma and called Akin. Akin was unable to assist with scheduling He states he will contact Alma to call us. * Telephone Encounter - Gianna Mcgraw LPN - 09/25/2023 2:46 PM EDT GI--please note imaging done at [facility]. Scheduling please continue, if needed call brother Akin. Thank you * Telephone Encounter - Harper Bailey OSA - 09/25/2023 1:59 PM EDT LMOM #2 and myg sent to Alma to set up appts * Telephone Encounter - Gaetano Lomax DO - 09/25/2023 7:[address] scan was done at [facility]. It does not need to be done again * Telephone Encounter - Harper Bailey OSA - 09/23/2023 4:02 PM EDT LMOM Alma to set up appts. The first gastro I can pull, at this time, is 4.10.24 at 11:00 with Roxana Bill. I did take thisappt spot and left the original may gastro appt in case this one will not work. Gen Surgery will be scheduled when speaking to Alma as there are several openings. * Telephone Encounter - Gianna Mcgraw LPN - 09/23/2023 3:51 PM EDT Spoke to daughter Alma, aware and will comply. Patient is moving into [facility] in [place]--SNF. Please schedule general surgery appt Also, can gastro be moved up? Thank you * Telephone Encounter - Gianna Mcgraw LPN - 09/23/2023 3:13 PM EDT Called Alma left message for her to return call. Thank you * Telephone Encounter - Gaetano Lomax DO - 09/23/2023 8:39 AM EDT Reviewed ER records. Refer to GI for possible Crohn's Disease Refer to surgery for possible chronic cholecystitis Stop Rivastigmine since it can cause abdominal pain See if patient is having bowel movements documented in this encounter Plan of Treatment Upcoming Encounters Date Type Department Care Team (Late st Contact Info) Description 09/26/2023 3:00 PM EDT Office Visit General Surgery, [facility] [address] [place] [address] Lexx Lin MD [address] [place] [address] 10/02/2023 11:00 AM EDT Office Visit Gastroenterology, [facility] [address] [place] [address] Yin Dent CRNP [address] [place] [address] 11/07/2023 8:40 AM EDT Office Visit Neurology [facility] [address] [facility] [place] [address] Sulema Dorsey MD 200 [facility] [place] [address] Scheduled Referrals Name Type Priority Associated Diagnoses [...] as of this encounter Visit Diagnoses Diagnosis Abnormal gall bladder diagnostic imaging- Primary Nonspecific (abnormal) findings on radiological and other examination of biliary tract Stomach pain Dyspepsia and other specified disorders of function of stomach documented in this encounter Advance Directives Documents on File Type Date Recorded Patient Resource Development Manager Expl anation Power of Plumbing Warehouse Helper 06/17/2023 EDITH Navarro PARENTAL ACCESS REQUEST Power of Plumbing Warehouse Helper 05/09/2023 POWER OF A TTORNEY Care Teams Time Study Analyst Relationship Specialty Start Date End Date Gaetano Lomax DO [address] [facility] [place] [address] PCP - General Internal Medicine 06/28/23 documented as of this encounter
--- OUTSIDE RECORDS SUMMARY | 2023-09-30 06:53 | External Medical Summary | Summary of Care ---
Author Name Unknown Organization [facility] Address [address] [facility] [address] Phone [phone] Care Team Providers Care Internal Grinding Machine Operator Name Role Phone Gaetano Lomax DO Primary Care Provider [phone] Reason for Visit * Reason Onset Date Comments Advice 09/26/2023 Encounter Details Date Type Department Care Team (Late st Contact Info) Description 09/26/2023 Telephone Family Practice [address] [facility] [address] [place] [address] Gaetano Lomax DO [address] [place] [address] Advice (/) Allergies No known active allergiesdocumented as of this encounter (statuses as of 09/27/2023) Medications Medication Sig Dispensed Refills Start Date [...] as of this encounter (statuses as of 09/27/2023) Active Problems Problem Noted Date Diagnosed Date Alzheimer's type dementia wi th late onset with behavioral disturbance 06/28/2023 documented as of this encounter (statuses as of 09/27/2023) Immunizations Name Administration Dates Next Due Covid-19 [...] Drug Monitoring Program in compliance with the [facility] regulations before prescribing a controlled substance. Last [...] that they may loose the bed at residential. Requesting ativan to take before the surgery to help patient be less agitated. Thank you documented in this encounter Plan of Treatment Upcoming Encounters Date Type Department Care Team (Late st Contact Info) Description 09/30/2023 7:30 AM EDT Office Visit Non [facility], Operating Room, [facility] [address] [place] [facility] [place] [address] Lexx Lin MD [address] [place] [address] 10/02/2023 9:30 AM EDT Scheduled Telephone General Surgery, [facility] [address] [facility] [place] [address] Sammy Nurse [facility] 132 [facility] [place] [address] 10/02/2023 11:00 AM EDT Office Visit Gastroenterology, [facility] [place] [address] Yin Dent CRNP [facility] [place] [address] 10/17/2023 2:15 PM EDT Office Visit General Surgery, [facility] [address] [place] [address] Lexx Lin MD [facility] [place] [address] 11/07/2023 8:40 AM EDT Office Visit Neurology [facility] [address] [facility] [place], [place] [address] Sulema Dorsey MD 200 [facility] [address] Health Maintenance Due Date Last Done Comments [...] Documents on File Type Date Recorded Patient Comber Setter Expl anation Power of Fishing Line Winding Machine Operator 06/17/2023 EDITH Navarro PARENTAL ACCESS REQUEST Power of Fishing Line Winding Machine Operator 05/09/2023 POWER OF A TTORNEY Care Teams Internal Grinding Machine Operator Relationship Specialty Start Date End Date Gaetano Lomax DO 293 [place] [address] PCP - General Internal Medicine 06/28/23 documented as of this encounter
--- OUTSIDE RECORDS SUMMARY | 2023-09-30 06:53 | External Medical Summary | Summary of Care ---
Author Name Unknown Organization [facility] Address [address] [facility] [address] Phone [phone] Care Team Providers Care Establishment Guide Name Role Phone Gaetano Lomax DO Primary Care Provider [phone] Reason for Visit * Reason Comments Follow Up Encounter Details Date Type Department Care Team (Late st Contact Info) Description 09/20/2023 4:00 PM EDT Office Visit Family Practice 65 [facility] [address] [place] [address] Gaetano Lomax [address] [place] [address] Abdominal pain, diffuse*; Pain aggravated by eating [...] pathway between the bedroom and the bathroom [facility] Patient Education Copyright 2008 - [...] 10 times. Repeat this throughout the day. [employer] Patient Education Copyright 2008 - 2010 [employer] except where otherwise noted. Preventing Falls: Moving [...] patient was seen in the ED at [facility] on 09/15/2023 due to abdominal pain. She [...] (HCC) Past Surgical History: Procedure Laterality Date [place] TOTAL ABDOMINAL HYSTERECT W/WO RMVL TUBE OVARY [...] EDT Office Visit Family Practice [address] [place] 293 [place] [address] Gaetano Lomax, [address] [place] [address] 10/25/2023 8:00 AM EDT Office Visit Gastroenterology, Health [facility] [address] [place] [address] Roxana Bill CRNP [address] [place] [address] 11/07/2023 8:40 AM EDT Office Visit Neurology [facility] [address] [place] [address] Sulema Dorsey MD [address] [place] [address] 05/22/2024 9:00 AM EST Office Visit Neurology [facility] [address] [place] [address] Mirela Lewis, DO [address] [place] [address] Health Maintenance Due Date Last [...] Documents on File Type Date Recorded Patient Staff Services Manager Expl anation Power of Anthropologist 06/17/2023 EDITH Navarro PARENTAL ACCESS REQUEST Power of Anthropologist 05/09/2023 POWER OF A TTORNEY Care Teams Establishment Guide Relationship Specialty Start Date End Date Gaetano Lomax DO [address] [place] [facility] [place] [place] [address] PCP - General Internal Medicine 06/28/23 documented as of this encounter
--- OUTSIDE RECORDS SUMMARY | 2023-09-30 06:53 | External Medical Summary | Summary of Care ---
Author Name Unknown Organization [facility] Address [address] [facility] [place] [address] Phone [phone] Care Team Providers Care Diet Counselor Name Role Phone ShyannseanGaetano DO Primary Care Provider [phone] Reason for Visit * Reason Comments Outpatient Testing Encounter Details Date Type Department Care Team (Late st Contact Info) Description 09/20/2023 2:00 PM EDT Laboratory Laboratory, [facility] [address] [facility] [place] [phone] [facility] [address] [place] [address] Mesenteric ischemia due to arterial insufficiency (HCC) Allergies No known active allergiesdocumented as of [...] on file documented as of this encounter Plan of Treatment Upcoming Encounters Date Type Department Care Team (Late st Contact Info) Description 09/20/2023 2:45 PM EDT Imaging Radiology [address] [place] [address] Mesenteric ischemia due to arterial insufficiency (HCC) 09/20/2023 4:00 PM EDT Office Visit Family Practice [address] [place] [address] 293 [facility] [place] [address] Gaetano Lomax, DO [address] [place] [address] 09/27/2023 11:20 AM EDT Office Visit Family Practice [address] [place] [address] 293 [facility] [place] [address] Gaetano Lomax, DO 293 [place] [address] 10/25/2023 8:00 AM EDT Office Visit Gastroenterology, [facility] [address] [facility] [place] [address] Roxana Bill CRNP 132 [facility] [address] 11/07/2023 8:40 AM EDT Office Visit Neurology [facility] [address] [place] [place] [address] Sulema Dorsey MD [address] [place] [address] 05/22/2024 9:00 AM EST Office Visit Neurology [facility] [address] [place] [address] [address] Mirela Lewis, [address] [place] [address] Pending Results Name Type Priority Associated Diagnoses Date /Time BASIC METABOLIC PANEL Lab STAT Mesenteric ischemia due to arterial insufficiency (HCC) 09/20/2023 2:00 PM EDT Health Maintenance Due Date Last Done Comments [...] as of this encounter Visit Diagnoses Diagnosis Mesenteric ischemia due to arterial insufficiency (HCC) Mesenteric ischemia due to arterial insufficiency (HCC) documented in this encounter Advance Directives Documents on File Type Date Recorded Patient Lead Burner Supervisor Expl anation Power of Trench Pipe Layer Helper 06/17/2023 EDITH Navarro PARENTAL ACCESS REQUEST Power of Trench Pipe Layer Helper 05/09/2023 POWER OF A TTORNEY Care Teams Diet Counselor Relationship Specialty Start Date End Date Gaetano Lomax DO [address] [place] [address] PCP - General Internal Medicine 06/28/23 documented as of this encounter
--- OUTSIDE RECORDS SUMMARY | 2023-09-30 06:53 | External Medical Summary | Summary of Care ---
Author Name Unknown Organization [facility] Address [address] [facility] [address] Phone [phone] Care Team Providers Care Nutrition Helper Name Role Phone Gaetano Lomax DO Primary Care Provider [phone] Reason for Visit * Reason Comments NEW PATIENT Gallbladder issues, sludge and dilated duct. * Evaluate & Treat - Unlimited Visits (Within 30 days (routine)) - Authorized Specialty Diagnoses / Procedures Referred By Mireya t Referred To Contact General Surgery Diagnoses Abnormal gall bladder diagnostic imaging Gaetano Lomax DO [address] [place] [address] Referral ID Status Reason Start Date Expiration Date Visits Requested Visits Authorized [id number] Authorized Specialty Services Required 09/23/[phone] Encounter Details Date Type Department Care Team (Late st Contact Info) Description 09/26/2023 3:00 PM EDT Office Visit General Surgery, [facility] 132 [facility] [place] [address] Lexx Lin MD 132 [facility] [place] [address] Sludge in gallbladder* Allergies No known active [...] Lin MD - 09/26/2023 1:41 PM EDT [facility] [address] [place] [address] [facility] Chief Complaint: Chief Complaint Patient presents [...] History Past Surgical History: Procedure Laterality Date [place] TOTAL ABDOMINAL HYSTERECT W/WO RMVL TUBE OVARY [...] education level: 12th grade Occupational History 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 Will schedule at [facility] on 09/30/2023. Attending: Lexx Lin MD 09/26/2023 1:41 PM documented in this encounter Nursing Notes * Concepción Ham LPN - 09/26/2023 1:39 [...] Care Team (Late st Contact Info) Description 10/02/2023 11:00 AM EDT Office Visit Gastroenterology, [facility] [place] [address] Yin Dent CRNP 132 [facility] [place] [address] 11/07/2023 8:40 AM EDT Office Visit Neurology [facility] [place] [address] Sulema Dorsey MD 200 [facility] [place] [address] Scheduled Referrals Name Type Priority Associated Diagnoses [...] Documents on File Type Date Recorded Patient Algorithm Developer Expl anation Power of Electronics Supervisor 06/17/2023 EDITH Navarro PARENTAL ACCESS REQUEST Power of Electronics Supervisor 05/09/2023 POWER OF A TTORNEY Care Teams Nutrition Helper Relationship Specialty Start Date End Date Gaetano Lomax DO [address] [place] [address] PCP - General Internal Medicine 06/28/23 documented as of this encounter
--- OUTSIDE RECORDS SUMMARY | 2023-09-30 06:53 | External Medical Summary | Summary of Care ---
Author Name Unknown Organization [facility] Address [address] [facility] [place] [address] Phone [phone] Care Team Providers Care Human Service Coordinator Name Role Phone Gaetano Lomax DO Primary Care Provider Reason for Visit * Reason Onset Date Comments Test Results 09/19/202309/18 Encounter Details Date Type Department Care Team (Late st Contact Info) Description 09/19/2023 Telephone Family Practice 65 [facility] [place] [address] [place] [address] Gaetano Lomax DO [address] [place] [address] Test Results (09/18) Allergies No known active allergiesdocumented as of [...] encounter Miscellaneous Notes * Telephone Encounter - Gaetano Lomax DO - 09/20/2023 9:31 AM EDT Check to see if pain has improved. * Telephone Encounter - Gianna Mcgraw LPN - 09/19/2023 2:33 PM EDT Pain is not any better. Spoke to waldemar made aware of below. Thank you * Telephone Encounter - Gianna Mcgraw LPN - 09/19/2023 2:18 PM EDT Called waldemar Marquez and left message to return call. Thank you * Telephone Encounter - Gianna Mcgraw LPN - 09/19/2023 2:17 PM EDT ----- Message from Gaetano Lomax DO sent at 09/19/2023 9:40 AM EDT ----- WBC is normal. Liver and kidney function are normal. CRP is elevated. Common bile duct is slightly enlarged. Sludge is present in the gallbladder. See if pain has improved. documented in this encounter Plan of Treatment Upcoming Encounters Date Type Department Care Team (Late st Contact Info) Description 09/20/2023 2:45 PM EDT Imaging Radiology [address] [place] [address] Mesenteric ischemia due to arterial insufficiency (HCC) 09/20/2023 4:00 PM EDT Office Visit [facility] 65 [facility] 293 [place] [phone] Gaetano Lomax, DO [address] [place] [address] 09/27/2023 11:20 AM EDT Office Visit [facility] 65 [facility] [address] [place] [address] Gaetano Lomax, DO [address] [place] [address] 10/25/2023 8:00 AM EDT Office Visit Gastroenterology, [facility] [address] [place] [address] Roxana Bill CRNP [address] [place] [address] 11/07/2023 8:40 AM EDT Office Visit Neurology [facility] 200 [facility] [place] [address] Sulema Dorsey MD 200 [facility] [place] [address] 05/22/2024 9:00 AM EST Office Visit Neurology [facility] 200 [facility] [place] [address] Mirela Lewis, DO [address] [place] [address] Health Maintenance Due Date Last Done Comments [...] Documents on File Type Date Recorded Patient Home Appliance Tech Expl anation Power of Sole Leather Cutting Machine Operator 06/17/2023 EDITH Navarro PARENTAL ACCESS REQUEST Power of Sole Leather Cutting Machine Operator 05/09/2023 POWER OF A TTORNEY Care Teams Human Service Coordinator Relationship Specialty Start Date End Date Gaetano Lomax DO [address] [place] [address] PCP - General Internal Medicine 06/28/23 documented as of this encounter
--- OUTSIDE RECORDS SUMMARY | 2023-09-30 06:53 | External Medical Summary | Summary of Care ---
Author Name Unknown Organization [facility] Address [address] [facility] [address] Phone [phone] Care Team Providers Care Carry Out Clerk Name Role Phone Gaetano Lomax DO Primary Care Provider [phone] Reason for Referral * Precert (Within 24 hrs (call dept; emergent)) - Pending Review Specialty Diagnoses / Procedures Referred By Mireya t Referred To Contact Radiology Diagnoses Mesenteric ischemia due to arterial insufficiency (HCC) Procedures CTA ABD/PELVIS Gaetano Lomax DO [address] [place] [address] Referral ID Status Reason Start Date Expiration Date V isits Requested Visits Authorized [id number] Pending Review 09/20/2023 999 999 Reason for Visit * Reason Onset Date Comments Information 09/20/2023 Encounter Details Date Type Department Care Team (Late st Contact Info) Description 09/20/2023 Telephone Family Practice [address] [place] [address] [place] [address] Gaetano Lomax DO [address] [place] [address] Information Allergies No known active allergiesdocumented as of [...] Telephone Encounter - Gianna Mcgraw LPN - 09/20/2023 1:39 PM EDT Is schedule for lab and ct. Has follow up here in office at 4 * Telephone Encounter - Gianna Mcgraw LPN - 09/20/2023 10:41 AM EDT Brother is aware. Please place order. Thank you * Telephone Encounter - Gaetano Lomax DO - 09/20/2023 10:[address] angiogram of mesenteric vessels to assess for Bowel ischemia. This is not the test that was done in the ED. Repeat BMP prior to imaging * Telephone Encounter - Gianna Mcgraw LPN - 09/20/2023 9:40 AM EDT Spoke to brother, patient continues to complain of pain. Please review CT done at ER. Please advise on any orders for today. Thank you documented in this encounter Plan of Treatment Upcoming Encounters Date Type Department Care Team (Late st Contact Info) Description 09/20/2023 2:45 PM EDT Imaging Radiology [facility] [address] [place] [address] 09/20/2023 4:00 PM EDT Office Visit Family Practice 65 [facility] [address] [place] [address] Gaetano Lomax, DO [address] [place] [address] 09/27/2023 11:20 AM EDT Office Visit Family [address] [place] [address] Gaetano Lomax, DO [address] [place] [address] 10/25/2023 8:00 AM EDT Office Visit Gastroenterology, [facility] 132 [place] [address] Roxana Bill CRNP 132 [place] [address] 11/07/2023 8:40 AM EDT Office Visit Neurology [facility] 200 [facility] [place] [address] Sulema Dorsey MD 200 [facility] [place] [address] 05/22/2024 9:00 AM EST Office Visit Neurology [facility] 200 [facility] [place] [address] Mirela Lewis, DO [address] [place], [place] [id number] Scheduled Orders Name Type Priority Associated Diagnoses Orde r Schedule BASIC METABOLIC PANEL Lab STAT Mesenteric ischemia due to arterial insufficiency (HCC) Expected: 09/20/2023 (Approximate), Expires: 09/19/2024 CTA ABD/PELVIS Medical Imaging STAT Mesenteric ischemia due to arterial insufficiency (HCC) Expected: 09/20/2023, Expires: 10/20/2024 Health Maintenance Due Date Last Done Comments [...] Diagnosis Mesenteric ischemia due to arterial insufficiency (HCC)- Primary RUQ abdominal pain Abdominal pain, right upper quadrant documented in this encounter Advance Directives Documents on File Type Date Recorded Patient Sql Report Analyst Expl anation Power of Senior It Project Manager 06/17/2023 EDITH Navarro PARENTAL ACCESS REQUEST Power of Senior It Project Manager 05/09/2023 POWER OF A TTORNEY Care Teams Carry Out Clerk Relationship Specialty Start Date End Date Gaetano Lomax DO 293 [place] [address] PCP - General Internal Medicine 06/28/23 documented as of this encounter
[2023-09-30] MEDS: LR 15ML/HR IV SCH (07:55)
[2023-09-30] MEDS ORDERED: fentaNYL citrate PF 100 MCG/2 ML VIAL ONE (08:31)
[2023-09-30] MEDS ORDERED: ATROPINE SULFATE 0.1 MG/ML 10ML SYR IV PRN (08:40)
[2023-09-30] MEDS ORDERED: ONDANSETRON INJ 2 MG/ML 2 ML VIAL IV PRN ×2 (08:40→10:05)
[2023-09-30] MEDS ORDERED: PROMETHAZINE HCL 6.25 MG in SODIUM CHLORIDE 0.9% 50 ML IV PRN (08:40)
--- NOTE | 2023-09-30 08:40 | History & Physical Bridge Note ---
Date of Service September 30, 2023 History & Physical Bridge Note I have examined the patient, reviewed the History & Physical and in the interval since the performance of the History & Physical I have noted the following changes of clinical significance: no changes noted
[2023-09-30] MEDS: ceFAZolin 2000MG 2,000 MG/15 ML SYR IV SCH (09:07)
[2023-09-30] MEDS: BUPIVACAINE/EPINEPHRINE 0.5% MPF 1:200,000 30 ML VIAL ONE (09:41)
[2023-09-30] MEDS: IOVERSOL 50ml IV ONE (09:43)
[2023-09-30] MEDS ORDERED: ONDANSETRON INJ 2 MG/ML 2 ML VIAL ONE (09:47)
[2023-09-30] MEDS ORDERED: NEOSTIGMINE METHYLSULFATE 1 MG/ML 10ML VIAL ONE (09:47)
[2023-09-30] MEDS ORDERED: LIDOCAINE 2% 2 ML VIAL/AMP(20MG/ML) INFIL ONE (09:47)
[2023-09-30] MEDS ORDERED: GLYCOPYRROLATE 0.2 MG/ML VIAL ONE (09:47)
[2023-09-30] MEDS ORDERED: DEXAMETHASONE SOD INJ 4 MG/ML VIAL ONE (09:47)
[2023-09-30] MEDS ORDERED: PROPOFOL IV EMULSION 10 MG/ML 20 ML VIAL IV ONE (09:47)
[2023-09-30] MEDS ORDERED: ROCURONIUM BROMIDE 10 MG/ML 5 ML VIAL IV ONE (09:47)
--- NOTE | 2023-09-30 09:55 | Post Operative Brief Note ---
Immediate Post Op Note v1 Date of Surgery September 30, 2023 Pre & Post Diagnosis Operation Date: 09/30/23 08:40 <No data on this case meets the specified criteria> I identified the patient and participated in the time-out.: Yes Procedure Operation Date: 09/30/23 08:40 <No data on this case meets the specified criteria> Surgeon Lexx Lin MD Hop Separator none Estimated Blood Loss 14 Findings Consistent with Post-Op Diagnosis
--- NOTE | 2023-09-30 10:04 | Operative Report ---
Post Operative Report Pre & Post Diagnosis Operation Date: 09/30/23 08:40 <No data on this case meets the specified criteria> I identified the patient and participated in the time-out.: Yes Procedure Operation Date: 09/30/23 08:40 <No data on this case meets the specified criteria> Laparoscopic cholecystectomy with interoperative cholangiogram Surgeon Lexx Lin MD Hardboard Grinder none Estimated Blood Loss 14 Findings Consistent with Post-Op Diagnosis Interoperative cholangiogram with no filling ducts noted and both hepatic radicles filling. Specimens Gallbladder to pathology Drains None Anesthesia Type General Complications None Indications This is a 78-year-old female who was seen in my office if she had an episode which required an ER visit. She had workup showing sludge and had elevated LFTs consistent with transient: Cholangitis. We talked in detail at this and recommended a laparoscopic cholecystectomy and interoperative cholangiogram. She agreed after discussing all the risks in detail. Description of Procedure The patient was taken the OR and underwent excellent general endotracheal anesthesia. Their abdomen is prepped and draped normal sterile fashion. A transverse supraumbilical incision was made and dissection was taken down to identify the anterior fascia. Two Vicryl's were placed on either side of the midline and his midline was then incised. The peritoneal cavity was entered bluntly with Bia clamp. A 12mm Siddiqui trocar was then inserted and secured. Good pneumoperitoneum was achieved to 15 mmHg pressure. Patient is placed in head up and rolled to the left. A 11mm subxiphoid and two 5mm lateral ports were placed in the normal fashion. The gallbladder was identified was slightly inflamed. An aspirator was then used to aspirate the gallbladder. This then facilitated grasping the the fundus of the gallbladder which was retracted superiorly. The neck of the gallbladder was grasped and then retracted laterally. This splayed open the Hepatocystic triangle. Attention was then to taking down the peritoneal attachments to identify the cystic duct and cystic artery. Once these were skeletonized and a medial and lateral window was created between the gallbladder fossa and the duct, thereby ensuring the critical view. Two clips were then placed approximately cystic artery one distally, the cystic artery was transected. A clip was then placed proximally on cystic duct 1 and it was partially transected. An intraoperative cholangiogram catheter was then inserted through an angiocath in the anterior abdominal wall. The catheter was fed into the cystic duct and secured. Interoperative cholangiogram was performed which showed no filling defects in the common duct and both hepatic radicles filling. The cholangiogram catheter was removed. Three clips were then placed distally on the cystic duct and the cystic duct was transected. An electrocautery hook was then used to move the gallbladder off the gallbladder fossa. The gallbladder was then placed into an Endobag and brought out through the supraumbilical incision. The pneumoperitoneum was re-established and abdomen was irrigated out until the suction fluid was clear. There were some areas on the gallbladder fossa which were raw and were cauterized. The ports were then removed and the abdomen decompressed. The fascia of the supraumbilical incision was closed with Vicryls. 0.5% Marcaine with epinephrine local was to create a local field block. Interrupted Vicryl was used to close the skin. Steri-Strips and benzoin were used to reinforce the incisions. Sterile dressings were applied. Patient tolerated the procedure without complication and sent to the postop recovery period of observation. I attest to the content of the Intraoperative Record and any orders documented therein. Any exceptions are noted below.
[2023-09-30] MEDS ORDERED: POLYETHYLENE (MIRALAX) 17 GM PACK PO PRN (10:05)
[2023-09-30] MEDS ORDERED: MoRPHine SULFATE 4 MG/ML 1 ML CARP\\VIAL IV PRN (10:05)
[2023-09-30] MEDS ORDERED: MAGNESIUM HYDROXIDE SUSP 30 ML UDC PO PRN (10:05)
[2023-09-30] MEDS ORDERED: ACETAMINOPHEN 325 MG TAB PO PRN (10:05)
[2023-09-30] MEDS ORDERED: ALUMINUM/MAGNESIUM SUSP 30 ML UDC PO PRN (10:05)
[2023-09-30] MEDS ORDERED: oxyCODONE/ACETAMINOPHEN 5mg/325mg TAB PO PRN (10:05)
[2023-09-30] MEDS ORDERED: MoRPHine SULFATE 2 MG/ML CARP IV PRN (10:05)
[2023-09-30] MEDS: KETOROLAC 30 MG/ML VIAL IV PRN (10:07)
[2023-09-30] MEDS: fentaNYL citrate PF 100 MCG/2 ML VIAL IV PRN (10:10)
--- NOTE | 2023-09-30 11:00 | Fluoroscopy Report ---
[place] cholangiogram OR HISTORY: 78 years-old Female CHOLANGIOGRAM COMPARISON: CT 09/20/2023 TECHNIQUE: 2 spot fluoroscopic images of the right upper quadrant abdomen were obtained utilizing 7.3 seconds. 1.15 mGy FINDINGS: Cholecystectomy clips are noted. There is cannulation of the cystic duct with injection of contrast w hich extends into the biliary tree and duodenum. No extravasation of contrast identified. There is no significant intrahepatic or extrahepatic biliary ductal dilation, stricturing or filling defects onesimo ntified. IMPRESSION: Fluoroscopic assistance as above. ACT 112: Negative or not required by law. The above report was generated using voice recognition software. It may contain grammatical, syntax o r spelling errors. Electronically signed by: Luis Manuel Hicks M.D. 09/30/2023 10:58 AM
[2023-09-30] MEDS: HYDROmorphone INJ 1 MG/ML SYRINGE IV PRN (11:15)
--- NOTE | 2023-09-30 11:55 | Anesthesiology Progress Note ---
Date of Service September 30, 2023 Anesthesia Post Procedure Vital Signs Vital Signs: Temp Pulse Pulse Resp BP Pulse Ox O2 Del Method 09/30/23 11:45 78 16 120/70 97 Nasal Cannula 09/30/23 11:30 75 16 111/63 97 Nasal Cannula 09/30/23 11:15 79 18 106/58 L 97 Nasal Cannula 09/30/23 10:59 37 C 77 16 114/64 97 Nasal Cannula 09/30/23 10:50 78 18 116/66 96 Nasal Cannula 09/30/23 10:40 67 20 138/71 96 Nasal Cannula 09/30/23 10:30 78 20 121/69 94 Nasal Cannula 09/30/23 10:20 70 22 137/68 93 Oxymask 09/30/23 10:10 75 22 149/84 H 95 Oxymask 09/30/23 10:00 36.9 C 77 20 147/81 H 97 Oxymask 09/30/23 07:53 36.7 C 91 H 20 120/85 93 Room Air O2 Flow Rate 09/30/23 11:45 2 09/30/23 11:30 2 09/30/23 11:15 2 09/30/23 10:59 2 09/30/23 10:50 2 09/30/23 10:40 2 09/30/23 10:30 2 09/30/23 10:20 2 09/30/23 10:10 4 09/30/23 10:00 6 09/30/23 07:53 Pain Intensity Abdomen: Pain Intensity: 5 Transfer of Care Handoff Completed per policy Notes Mental Status: alert / awake / arousable Patient Amnestic to Procedure: Yes Nausea / Vomiting: adequately controlled Pain: adequately controlled Airway Patency, RR, SpO2: stable & adequate BP & HR: stable & adequate Hydration State: stable & adequate Anesthetic Complications: no major complications apparent
[2023-09-30] MEDS: LACTATED RINGER'S 1,000 ML IV SCH (16:07)
[2023-09-30] MEDS: oxyCODONE/ACETAMINOPHEN 5mg/325mg TAB PO PRN (17:56)
[2023-09-30] MEDS: QUEtiapine FUMARATE 25 MG TABLET PO SCH (20:33)
[2023-09-30] MEDS: CYANOCOBALAMIN (B-12) 500 MCG TABLET PO SCH (20:33)
[2023-10-01] MEDS: PANTOprazole 40 MG TAB PO SCH (08:18)
[2023-10-01] MEDS: DOCUSATE SODIUM 100 MG CAP PO SCH (09:03)
[2023-10-01] MEDS: POLYETHYLENE (MIRALAX) 17 GM PACK PO STA (09:03)
--- NOTE | 2023-10-01 09:25 | Surgery Progress Note ---
Date of Service October 01, 2023 Assessment & Plan (1) Abdominal pain: (2) Cholelithiasis: Plan POD # 1 s/p laparoscopic cholecystectomy, intraoperative cholangiogram avss postop pain controlled no n,v Plan: continue pain management case management consulted to help with discharge planning add bid stool softener likely discharge today pending discharge planning Dr. Lin has seen and examined patient, agrees with above Admission and Anticipated Discharge Date Admission Date: September 30, 2023 Subjective patient states she is having some pain but controlled tolerated breakfast without difficulty no n,v alert and oriented to person with baseline Dementia no concerns by nursing staff Physical Exam Constitutional: WD/WN, vitals as above cooperative and comfortable; no acute distress and not ill appearing Respiratory: normal respiratory effort; no respiratory distress and no labored breathing Gastrointestinal (Abdomen): Inspection/Auscultation: abdomen normal to inspect ion and + abdominal surgical incision (c/d/i with dermabond); abdomen not distended and + abnormal bowel sounds Percussion/Palpation: + abdomen tender (at incision sites) and abdomen soft; no guarding, abdomen not rigid and abdomen not firm Skin: no rashes, warm and dry no jaundice Psychiatric: Orientation: alert; + not oriented x 3 Results & Data Vital Signs (Past 12 Hours) Vital Signs Temp Pulse Resp BP BP Pulse Ox O2 Del Method 10/01/23 07:27 36.8 C 88 17 93/54 L 98 Nasal Cannula 10/01/23 06:14 36.5 C 87 16 114/68 96 Nasal Cannula 10/01/23 02:39 36.7 C 84 16 100/62 96/60 L 99 Nasal Cannula 09/30/23 22:57 36.5 C 83 16 96/58 L 97 Nasal Cannula O2 Flow Rate 10/01/23 07:27 2 10/01/23 06:14 2 10/01/23 02:39 2 09/30/23 22:57 2
--- NOTE | 2023-10-01 09:53 | Discharge Summary ---
Date of Service October 01, 2023 Admission HPI Per Admitting Provider 78YO with gallbladder disease and dementia. Will plan to do lap tess and subsequently transfer to nursing facility. Principal Diagnosis gallbladder disease with sludge Discharge Data Allergies Allergy/AdvReac Type Severity Reaction Status Date / Time No Known Allergies Allergy Verified 09/30/23 07:49 Procedures Performed Operation Date: 09/30/23 08:40 Actual Procedures p Laparoscopic Cholecystectomy with Cholangiogram(Not Applicable) - Lexx Fung MD Ordered Studies 09/30/23 08:40 [place] cholangiogram OR Routine Hospital Course (1) Cholelithiasis: Patient was admitted after uncomplicated lap tess with cholangiogram. The IOC was negative for common bile duct disease. She did well post op and was discharged to nursing facility due to her declining cognitive function per family wishes. Plan advance diet as tolerated activity with no strenuous activity 4 weeks Rx percocet F/U 2 weeks my clinic Total Time Total Time Spent Total Time Spent (In Minutes): 15min Discharge Plan Discharge Items Patient Disposition: Home - Self-Care Reason For Visit: Sludge in Gallbladder Discharge Diagnosis: gallbladder disease Activity: Per Instructions section Lifting: No more than 25 pounds Bathing: No limitations Sexual Activity: When tolerated Exercise/Sports: Wait until after follow-up appointment Driving/Machine Use: Resume 3 days after discharge Weightbearing: Full weightbearing Non-emergency contact: Surgeon Call non-emergency contact if: your pain is concerning for you, your temperature is above 101.5 and your wound pain has increased Follow-up/Referrals: Gaetano Lomax DO [Primary Care Provider] - Diet: Regular Addtl Attending Provider Instructions: appt dr [facility] 2 weeks Pending Studies at Discharge: No Stand-Alone Forms: My [facility] [employer], Smoking Cessation Medications and DC Order Prescriptions: New oxycodone-acetaminophen [Percocet] 5-325 mg tablet 1 tab PO Q6H PRN (Reason: pain) Qty: 14 0RF oxycodone-acetaminophen [Percocet] 5-325 mg tablet 1 tab PO Q6H PRN (Reason: pain) Qty: 14 0RF Continued lorazepam 1 mg Tablet 1 mg PO ONCE rivastigmine [Exelon Patch] 4.6 mg/24 hour Patch 24 Hour 4.6 mg TRANSDERMAL QAM Rx Instructions: place 1 patch over 24 hours Myrbetriq 50 mg Tablet Extended Release 24 Hr 50 mg PO HS quetiapine [Seroquel] 25 mg Tablet 25 mg PO HS cyanocobalamin (vitamin B-12) [Vitamin B-12] 500 mcg Tablet 500 mcg PO HS omeprazole 20 mg Capsule,Delayed Release(Dr/Ec) 20 mg PO QAM bisacodyl 5 mg Tablet 10 mg PO HS PRN (Reason: Constipation) Discharge Orders: Discharge Order (Routine); Ordered 10/01/23 Ordered By: Lexx Fung Admission Data Admit Date/Time: 09/30/23 10:05 Attending Provider: Lexx Fung Admit Provider: Lexx Fung Primary Care Provider: Gaetano Lomax
--- NOTE | 2023-10-02 13:28 | Operative Report ---
Post Operative Report Pre & Post Diagnosis Operation Date: 09/30/23 08:40 Pre-Op Diagnosis: Chronic Cholecystitis, with Sludge in Gallbladder Post-Op Diagnosis: Chronic Cholecystitis, with Sludge in Gallbladder I identified the patient and participated in the time-out.: Yes Procedure Operation Date: 09/30/23 08:40 Actual Procedures p Laparoscopic Cholecystectomy with Cholangiogram(Not Applicable) - Lexx Lin MD Surgeon Lexx Lin MD Manuscript Reader none Estimated Blood Loss 14 Findings Consistent with Post-Op Diagnosis see previous op note Specimens see previous op note Description of Procedure see previous op note I attest to the content of the Intraoperative Record and any orders documented therein. Any exceptions are noted below.
== END 2023-10-01 14:45 ==
LOC: 3E 06:46 → ASU 06:46